=== PATIENT | female | born 1975 | race Caucasian/White ===

== ENCOUNTER 2020-10-26 20:25 | Emergency (ER) | payer OTHER ==
[~2020-10-26] VITALS: Ht 175.3 cm; Wt 112.0 kg
--- NOTE | 2020-10-26 21:34 | PHYS DOC ---
General Adult EDM: Chief Complaint: ANIMAL BITE HPI: HPI: ".. This pit bull .. got me in my Lt calf.. I been walking by him almost every day.. but to day he decided to bite me... His name is ' Gi'.. ".. There was a police report.. and the dog is reportedly up to date with his shots.." Patient is a 44 year old female who presents with above hx and dog bite left calf. Patient has puncture vázquez at this site. Distal neurovascular is intact. Patient unaware of exact last tetanus update. Dog is reportedly up-to-date with vaccinations. Please report was made. Patient's had no recent travel. No severe ill contacts. No history immunosuppression. Laceration was cleaned and irrigated by nursing. A dressing applied. Review of Systems: Review of Systems: Constitutional: Denies fever or chills Eyes: Denies change in visual acuity HENT: Denies nasal congestion or sore throat Respiratory: Denies cough or shortness of breath Cardiovascular: Denies chest pain or edema GI: Denies abdominal pain, nausea, vomiting, bloody stools or diarrhea : Denies dysuria Musculoskeletal: Denies back pain or joint pain Integument: Dog bite to the left calf Neurologic: Denies headache, focal weakness or sensory changes Endocrine: Denies polyuria or polydipsia Lymphatic: Denies swollen glands Psychiatric: Denies depression or anxiety Family History: Family History: Noncontributory to presentation Current Medications: Current Meds: See nursing for home meds. Allergies: Allergies: Allergies Coded Allergies Type Severity Reaction Last Updated Verified amoxicillin Allergy Unknown 10/26/20 Yes cephalexin Allergy Unknown 10/26/20 Yes clavulanic acid Allergy Unknown 10/26/20 Yes Physical Exam: PE: Constitutional: Well developed, well nourished, in acute distress, non-toxic appearance. [] HENT: Normocephalic, atraumatic, bilateral external ears normal, oropharynx moist, no oral exudates, nose normal. [] Eyes: PERRLA, EOMI, conjunctiva normal, no discharge. [] Neck: Normal range of motion, no tenderness, supple, no stridor. [] Cardiovascular:Heart rate regular rhythm, no murmur [] Lungs & Thorax: Bilateral breath sounds clear to auscultation [] Abdomen: Bowel sounds normal, soft, no tenderness, no masses, no pulsatile masses. [] Skin: Warm, dry, no erythema, no rash. Puncture vázquez-dog bite left calf Back: No tenderness, no CVA tenderness. [] Extremities: Left calf tenderness, no cyanosis, no clubbing, ROM intact, no edema. [] Neurologic: Alert and oriented X 3, normal motor function, normal sensory function, no focal deficits noted. [] Psychologic: Affect normal, judgement normal, mood normal. [] EKG: EKG: [] Radiology/Procedures: Radiology/Procedures: Pt. deferred x-ray at this time. [] Heart Score: C/O Chest Pain: N/A Risk Factors: Risk Factors: DM, Current or recent (<one month) smoker, HTN, HLP, family history of CAD, obesity. Risk Scores: Score 0 - 3: 2.5% MACE over next 6 weeks - Discharge Home Score 4 - 6: 20.3% MACE over next 6 weeks - Admit for Clinical Observation Score 7 - 10: 72.7% MACE over next 6 weeks - Early Invasive Strategies Course & Med Decision Making: Course & Med Decision Making Pertinent Labs and Imaging studies reviewed. (See chart for details) Patient use warm salt water and Epsome salt compresses 4 times a day. Then massage area with Polysporin. Dog is to be confined in the next 10 days. Patient to take Cipro 500 mg twice a day and Bactrim DS twice a day since she is currently allergic to Augmentin, penicillin or Keflex. Risk of Pasterurella Canis discussed. Risk of rabies discussed. If dog becomes ill patient must return for further evaluation. Patient monitor site for infection. Tylenol and ibuprofen for pain. Return if any concerns. Follow-up primary care. Impression: 1. Dog Bite- Lt Calf [] Dragon Disclaimer: Dragon Disclaimer: This electronic medical record was generated, in whole or in part, using a voice recognition dictation system. Departure Departure: Referrals: FIDEL TUTTLE (PCP) Scripts Sulfamethoxazole/Trimethoprim (BACTRIM DS TABLET) 1 Each Tablet 1 TAB PO BID for dog bite for 10 Days, #20 TAB 0 Refills Prov: MESHA TUCKER MD 10/26/20 Ciprofloxacin (CIPRO) 500 Mg/5 Ml [facility]..rec 500 MG PO BID for dog bite for 10 Days, MISC Prov: MESHA TUCKER MD 10/26/20 Sulfamethoxazole/Trimethoprim (BACTRIM DS TABLET) 1 Each Tablet 1 TAB PO BID for dog bite for 10 Days, #20 TAB 0 Refills Prov: MESHA TUCKER MD 10/26/20 Ciprofloxacin Hcl (CIPROFLOXACIN HCL) 500 Mg Tablet 500 MG PO BID for dog bite for 10 Days, #20 TAB Prov: MESHA TUCKER MD 10/26/20 Dragon Disclaimer This chart was dictated in whole or in part using Voice Recognition software in a busy, high-work load, and often noisy Emergency Department environment. It may contain unintended and wholly unrecognized errors or omissions. Dragon Disclaimer This chart was dictated in whole or in part using Voice Recognition software in a busy, high-work load, and often noisy Emergency Department environment. It may contain unintended and wholly unrecognized errors or omissions. MESHA TUCKER MD October 26, 2020 21:34
[2020-10-26] MEDS ORDERED: SMZ/TMP 800/160MG TABLET. PO ONE (22:00)
[2020-10-26] MEDS ORDERED: CLINDAMYCIN HCL 150 MG CAPSULE PO ONE (22:00)
[2020-10-26] MEDS ORDERED: SULF1TAB24 PO ×2 (22:16→22:42)
[2020-10-26] MEDS ORDERED: CIPR500T2 PO (22:16)
[2020-10-26] MEDS ORDERED: CIPR500S2 PO (22:41)
[2020-10-26 22:45] VITALS: BP 121/78
== END 2020-10-26 22:45 | disposition home or self-care (01) ==
LOC: ER 20:25
DX: S81.832A Puncture wound without foreign body, left lower leg, initial encounter (principal); Z88.1 Allergy status to other antibiotic agents; W54.0XXA Bitten by dog, initial encounter; Y93.89 Activity, other specified; Y92.89 Other specified places as the place of occurrence of the external cause; Y99.8 Other external cause status
CPT/HCPCS: 99283